=== PATIENT | female | born 1940 | race Caucasian/White ===

== ENCOUNTER → 2018-07-12 | Outpatient (CLI) | payer MEDICARE ==
--- NOTE | 2018-07-12 11:56 | RAD ---
EXAM DESCRIPTION: Left hand, 3 radiographs CLINICAL HISTORY: M79.641, M79.642 FINDINGS/ IMPRESSION: Osteopenia. 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 Mild interphalangeal joint space narrowing at the other joints No focal demineralization or inflammatory erosion. No fracture or acute osteochondral lesion. Carpometacarpal arthrosis of the thumb with [id number] contact. Mild joint space narrowing STT joint Electronically signed by: Jamie Lee MD 07/12/2018 11:54 AM CDT
--- NOTE | 2018-07-12 11:58 | RAD ---
EXAM DESCRIPTION: Hand,Right 3 Views CLINICAL HISTORY: M79.641, M79.642 COMPARISON: None Available. TECHNIQUE: AP, LATERAL, AND OBLIQUE radiographs of the left hand were obtained. FINDINGS: The visualized bones appear poorly mineralized. No acute fracture or dislocation. The soft tissues appear grossly unremarkable. Degenerative changes are identified in the distal interphalangeal joints, worse in the third digit. Mild degenerative changes are identified in the first carpometacarpal joint. IMPRESSION: Degenerative changes are identified in the distal interphalangeal joints, worse in the left third digit. Mild degenerative changes are identified in the first carpometacarpal joint. Electronically signed by: Yumi Vazquez MD 07/12/2018 11:56 AM CDT
== END ==
LOC: RAD 08:28
PROVIDERS: ATTEND Orthopaedic Surgery
DX: M19.041 Primary osteoarthritis, right hand (principal); M19.042 Primary osteoarthritis, left hand; M85.842 Other specified disorders of bone density and structure, left hand

== ENCOUNTER → 2019-06-09 | Outpatient (CLI) | payer MEDICARE ==
--- NOTE | 2019-06-09 09:37 | RAD ---
EXAM DESCRIPTION: Hip,Left 2 Views (accession [id number]), Pelvis (accession [id number]) CLINICAL HISTORY: 79 years Female, PAIN COMPARISON: None. Findings: Three views/radiographs Location: Left hip/pelvis No acute fracture or dislocation. Mild bilateral hip joint space narrowing. Irregular calcifications in the midline pelvis overlying the sacrum spanning a distance of 1.1 cm. Degenerative changes in the visualized spine and sacroiliac joints. IMPRESSION: No acute osseous abnormality. Irregular calcifications in the midline pelvis overlying the sacrum spanning a distance of 1.1 cm. These may be related to an ovarian dermoid. Consider CT or pelvic ultrasound for further evaluation. Electronically signed by: Ramirez Carranza MD 06/09/2019 9:36 AM CDT
--- NOTE | 2019-06-09 09:37 | RAD ---
EXAM DESCRIPTION: Hip,Left 2 Views (accession [id number]), Pelvis (accession [id number]) CLINICAL HISTORY: 79 years Female, PAIN COMPARISON: None. Findings: Three views/radiographs Location: Left hip/pelvis No acute fracture or dislocation. Mild bilateral hip joint space narrowing. Irregular calcifications in the midline pelvis overlying the sacrum spanning a distance of 1.1 cm. Degenerative changes in the visualized spine and sacroiliac joints. IMPRESSION: No acute osseous abnormality. Irregular calcifications in the midline pelvis overlying the sacrum spanning a distance of 1.1 cm. These may be related to an ovarian dermoid. Consider CT or pelvic ultrasound for further evaluation. Electronically signed by: Ramirez Carranza MD 06/09/2019 9:36 AM CDT
== END ==
LOC: RAD 09:17
PROVIDERS: ATTEND Orthopaedic Surgery
DX: M25.552 Pain in left hip (principal); R93.41 Abnormal radiologic findings on diagnostic imaging of renal pelvis, ureter, or bladder

== ENCOUNTER → 2019-07-07 | Outpatient (CLI) | payer MEDICARE ==
--- NOTE | 2019-07-07 22:39 | MRI ---
EXAM DESCRIPTION: Lumbar Spine w/o Contrast : Magnetic Resonance Imaging. CLINICAL HISTORY: RADICULOPATHY LUMBAR REGION COMPARISON: Radiographs of the pelvis and left hip June 08. TECHNIQUE: Multiplanar, multiple standard sequences, non contrast MRI, lumbar spine. FINDINGS: L5-S1: The disc is well visualized on axial T2 series 501, image 3. Disc desiccation and moderate disc space loss. Moderate endplate reactive changes on the right. Grade 1 anterolisthesis 6 mm. Moderate degenerative hypertrophy of the facet joints and flavum ligaments (canal elements) minimal posterior disc bulge with AP canal diameter 9 mm. Moderate to severe left foraminal narrowing and borderline right foraminal stenosis. L4-L5: Disc desiccation minimal disc space loss. More to the right of midline. Posterior broad-based disc bulge. Grade 1 anterolisthesis 3 mm. [id number] degenerative hypertrophy of the canal elements. AP canal diameter 8 mm. Mild right foraminal narrowing and moderate left foraminal narrowing. L3-L4: Disc desiccation and disc space loss mostly in the midline into the left of midline with advanced endplate reactive changes on the left. Disc spur complex encroaching on the left foramen which is stenotic. Posterior disc remnant bulge and grade 1 anterolisthesis 3.5 mm. AP canal diameter 6 mm. Moderate degenerative hypertrophy of the canal elements. Mild narrowing of the right foramen. L2-L3: Disc desiccation and disc space loss in the midline into the left of midline with moderate endplate reactive changes and Schmorl's nodes. Trace anterolisthesis. Left posterior 6 mm disc protrusion with minimal extrusion above the disc space. The disc is abutting the exiting left L2 nerve. Moderate hypertrophic degeneration in the canal elements. AP canal diameter 7.5 mm to the left of midline. Moderate left foraminal narrowing and mild right foraminal narrowing. L1-L2: Minimal disc desiccation with disc space maintained and no bulging. Minimal hypertrophy of the canal elements. Canal and foramina are patent. Conus terminates at L1. T12-L1: Disc space maintained with normal signal in the disc. Minimal degenerative hypertrophy of the flavum ligaments. Canal and foramina are patent. L3-L5 dextroscoliosis. Paravertebral soft tissues showing muscle atrophy, and gallbladder.,. Distal cord normal signal and caliber. Multiple perineural cysts in the sacrum to the right of midline. Otherwise normal marrow signal in the remaining vertebral bodies and the posterior elements. Vertebral bodies are not compressed at any level. IMPRESSION: 1. Multilevel disc desiccation, anterolisthesis, endplate spondylosis, degenerative hypertrophy of the flavum ligaments and facet joints (canal elements). Multifactorial mild central canal stenosis at L5-S1. Borderline right foraminal stenosis. 2. Multifactorial mild to moderate central canal stenosis at L4-L5. 3. Multifactorial severe central canal stenosis at L3-L4. Multifactorial moderate central canal stenosis at L2-L3. Electronically signed by: Dequan Caceres MD 07/07/2019 10:38 PM CDT
== END ==
LOC: MRI 11:04
PROVIDERS: ATTEND Orthopaedic Surgery
DX: M47.26 Other spondylosis with radiculopathy, lumbar region (principal); M51.36 Other intervertebral disc degeneration, lumbar region; M24.28 Disorder of ligament, vertebrae; M46.96 Unspecified inflammatory spondylopathy, lumbar region; M48.061 Spinal stenosis, lumbar region without neurogenic claudication; M48.07 Spinal stenosis, lumbosacral region

== ENCOUNTER → 2019-07-25 | Outpatient (CLI) | payer MEDICARE ==
--- NOTE | 2019-07-25 12:29 | RAD ---
EXAM DESCRIPTION: Wrist,Left 3 Views CLINICAL HISTORY: 79 years Female, PAIN IN LEFT WRIST COMPARISON: None. FINDINGS: Three views of the left wrist show posterior soft tissue swelling without acute fracture or malalignment. Degenerative changes at the first CMC joint, the joint spaces are otherwise well-maintained. No radiopaque foreign body or soft tissue gas. IMPRESSION: Posterior soft tissue swelling without fracture or malalignment. [id number] degenerative changes in the first CMC joint. Electronically signed by: Eligio Prabhakar MD 07/25/2019 12:27 PM CDT
== END ==
LOC: RAD 09:50
PROVIDERS: ATTEND Orthopaedic Surgery
DX: M18.12 Unilateral primary osteoarthritis of first carpometacarpal joint, left hand (principal); M19.041 Primary osteoarthritis, right hand; M19.042 Primary osteoarthritis, left hand; M79.9 Soft tissue disorder, unspecified

== ENCOUNTER → 2019-07-28 | Outpatient (CLI) | payer MEDICARE | LOC: LAB.O 14:58 | PROVIDERS: ATTEND Orthopaedic Surgery | DX: M25.532 Pain in left wrist (principal) ==

== ENCOUNTER 2020-03-04 05:44 | Emergency (ER) | payer MEDICARE ==
--- NOTE | 2020-03-04 06:08 | ED.PDOC ---
History of Present Illness - General Chief Complaint: Blood Pressure Problem Stated Complaint: elevated BP, irregular HR Time Seen by Provider: 03/04/20 06:03 Source: patient, RN notes reviewed, family - History of Present Illness Initial Comments: The patient is an 79 year old with past medical history significant for hypothyroidism presents to the Emergency Department with palpitations and elevated blood pressure. She states that she woke to use the restroom and upon returning to bed felt that her heart was "racing and quivering" so she checked her blood pressure and found it to be elevated which prompted her visit to the Emergency Department. She denies chest pain and shortness of breath. She does not have any prior history of cardiac disease aside from hypertension. She does not take any medications for her blood pressures which she notes have been labile and she has been instructed by her PCP and her associate professor of surgery to monitor for now. No other complaints at this time. Allergies/Adverse Reactions: Allergies Epinephrine Allergy (Verified 03/04/20 06:08) Erythromycin Allergy (Verified 03/04/20 06:08) Peanut Oil Allergy (Verified 03/04/20 06:13) Phenobarbital Allergy (Verified 03/04/20 06:08) Prednisone Allergy (Verified 03/04/20 06:08) Sulfasalazine [From Azulfidine] Allergy (Verified 03/04/20 06:08) Anticholenergics Allergy (Uncoded 03/04/20 06:08) Home Medications: Ambulatory Orders Biest/Progesterone 03/04/20 Hydrochlorothiazide 12.5 mg PO QAM 03/04/20 Levothyroxine Sodium [Synthroid] 0.1 mg PO QAM 03/04/20 Sucralfate Tab [Carafate Tab] 1 gm PO PRN 03/04/20 Review of Systems - Review of Systems Constitutional: Denies: chills, fever, malaise, weakness EENTM: States: no symptoms reported Respiratory: Denies: cough, short of breath Cardiology: States: palpitations. Denies: chest pain Gastrointestinal/Abdominal: Denies: abdominal pain, nausea, vomiting Genitourinary: States: no symptoms reported Musculoskeletal: States: no symptoms reported Skin: States: no symptoms reported Neurological: States: no symptoms reported Endocrine: States: no symptoms reported Hematologic/Lymphatic: States: no symptoms reported All other Systems: Reviewed and Negative Family Medical History - Family History Mother Family History: Unknown Physical Exam - Physical Exam General Appearance: Anxious, Comfortable, No apparent distress, Other - Pleasant Eyes, Ears, Nose, Throat Exam: normal ENT inspection Neck: non-tender, full range of motion, supple Respiratory: lungs clear, normal breath sounds, no respiratory distress, no accessory muscle use Cardiovascular/Chest: normal peripheral pulses, tachycardia Gastrointestinal/Abdominal: non tender, soft Extremity: normal range of motion, non-tender, normal inspection, no pedal edema Neurologic: no motor/sensory deficits, alert, normal mood/affect, oriented x 3 Progress - Progress Progress: 03/04/20 06:26 Patient spontaneously converted to normal sinus rhythm 03/04/20 07:00 Transition of care from Dr. Smith to Dr. Oswald, pending thyroid studies. She converted from paroxysmal atrial flutter to normal sinus rhythm. She already has cardiology follow up next week for stress echo and carotid ultrasound. She will follow up with her associate professor of surgery tomorrow for atrial flutter. - EKG/XRAY/CT EKG: Atrial, Flutter Comments: Atrial flutter at 141 with 2:1 block, inferior t-wave depressions XRAY: chest Xray Comments: No acute cardiopulmonary process identified. - Additional EKG/XRAY/Consults EKG #2: Sinus, no ST T wave changes Comments: normal sinus rhythm at 87, nl axis, nl intervals, no STEMI Departure - Departure Clinical Impression: Paroxysmal atrial flutter Hypertension Qualifiers: Hypertension type: essential hypertension Qualified Code(s): I10 - Essential (primary) hypertension Disposition: Discharge to Home or Self Care Departure Forms: ED Discharge - Pt. Copy, Patient Portal Self Enrollment Instructions: DI for High Blood Pressure Referrals: ANIYA BATISTA [facility] [Primary Care Provider] - 1-2 Weeks Home Medications: Ambulatory Orders Biest/Progesterone 03/04/20 Hydrochlorothiazide 12.5 mg PO QAM 03/04/20 Levothyroxine Sodium [Synthroid] 0.1 mg PO QAM 03/04/20 Sucralfate Tab [Carafate Tab] 1 gm PO PRN 03/04/20
--- NOTE | 2020-03-04 06:38 | RAD ---
EXAM: XR Chest, 1 View CLINICAL HISTORY: The patient is 79 years old and is Female; chest tightness TECHNIQUE: Single view of the chest. COMPARISON: No relevant prior studies available. FINDINGS: Lungs: Unremarkable. No consolidation. Pleural space: Unremarkable. No pneumothorax. Heart: Unremarkable. No cardiomegaly. Mediastinum: Unremarkable. Bones/joints: No acute fracture visualized. Upper abdomen: No free air in the visualized upper abdomen. IMPRESSION: No acute cardiopulmonary process identified. Electronically signed by: Justine Irwin MD 03/04/2020 6:36 AM DENTAL PROFESSIONAL
[2020-03-04 07:04] VITALS: BP 133/75; TEMP 97.9; O2SAT 96
== END 2020-03-04 07:12 | disposition home or self-care (01) ==
LOC: ER 05:44
DX: I10 Essential (primary) hypertension (principal); I48.92 Unspecified atrial flutter; R94.6 Abnormal results of thyroid function studies; Z79.899 Other long term (current) drug therapy; Z88.8 Allergy status to other drugs, medicaments and biological substances; Z88.1 Allergy status to other antibiotic agents